=== PATIENT | female | born 1965 | race African-American/Black ===

== ENCOUNTER 2018-02-28 11:26 | Emergency (ER) | payer SELFPAY ==
[2018-02-28] MEDS ORDERED: Metoprolol Succinate XL TAB* 50 MG PO ONE (11:54)
--- OUTSIDE RECORDS SUMMARY | 2018-02-28 12:09 | XMS REPORT ---
:1965 External Reference #:[id number] Author Organization [facility] Address [address] [place] [address] [place] [address] Phone [phone] Care Team Providers Name Role Phone Ancelmo Arvizu MD Care Team Information Lifeguard Unavailable Ancelmo Arvizu MD Primary Care Physician Unavailable Payers Type Date Identification Numbers Payment Provider Subscriber Commercial Policy Number: [id number] [employer] Jose Osman PayID: [id number] [address] [address] [place] [address] Problems Date Description Provider Status Onset: 12/23/2007 Obstructive sleep apnea Judy Gunderson DNP, RN, Active syndrome CAN DRAGGER-BC Onset: 09/25/2016 Hypersomnia Judy Gunderson DNP, RN, Active CAN DRAGGER-BC Onset: 09/25/2016 Morbid obesity Judy Gunderson DNP, RN, Active CAN DRAGGER-BC Family History Date Family Member(s) Problem(s) Comments General Breast Cancer Aunts Father due to Pancreatic Cancer () Mother Congestive Heart Failure (CHF) Mother Coronary Artery Disease (CAD) Social History Type Date Description Comments Occupation Currently Working Cigarette Use Former Cigarette Smoker Smoking Patient is a former smoker Smoking Electronic cigarettes With nicotine, 2x per week Daily Caffeine Consumes on average 2 cups of regular coffee per day Allergies, Adverse Reactions, Alerts Date Description Reaction Status Severity Comments 06/05/2016 Keflex active Medications Medication Date Status Form Strength Qnty SIG Indications Ordering Provider Bupropion HCL ER (XL) Active Tablets 150mg 1 by Unknown /0000 ER 24HR mouth every day Lamotrigine Active Tablets 200mg take one Unknown /0000 tablet by mouth a day Saphris Active Tablets 10mg daily Unknown /0000 Sub Gabapentin Active Capsules 300mg 1 by Unknown /0000 mouth daily Losartan Potassium Active Tablets 100mg 1 by Unknown /0000 mouth every day Metformin HCL ER Active Tablets 500mg 1 by Unknown /0000 ER 24HR mouth every day Hydrochlorothiazide Active Tablets 25mg 1 by Unknown /0000 mouth every day Albuterol Active Powder inhaler Unknown /0000 every 4-6 hours as needed Vital Signs Date Vital Result Comment 02/28/2018 Height 63.5 inches 5'3.50" Weight 331.25 lb Heart Rate 88 /min BP Systolic Sitting 156 mmHg Rue large cuff BP Diastolic Sitting 92 mmHg Rue large cuff Respiratory Rate 26 /min O2 % BldC Oximetry 96 % On Ra BMI (Body Mass Index) 57.8 kg/m2 09/25/2016 Height 63.5 inches 5'3.50" Weight 336.00 lb Heart Rate 90 /min BP Systolic 154 mmHg BP Diastolic 88 mmHg Respiratory Rate 14 /min O2 % BldC Oximetry 97 % BMI (Body Mass Index) 58.6 kg/m2 06/27/2016 Height 63.5 inches 5'3.50" Weight 336.00 lb Heart Rate 84 /min BP Systolic 144 mmHg BP Diastolic 90 mmHg Respiratory Rate 18 /min Body Temperature 97.2 F BMI (Body Mass Index) 58.6 kg/m2 06/06/2016 Height 63.5 inches 5'3.50" Weight 333.00 lb Heart Rate 72 /min BP Systolic 130 mmHg BP Diastolic 80 mmHg Respiratory Rate 16 /min Body Temperature 98.1 F BMI (Body Mass Index) 58.1 kg/m2 Results Description No Information Procedures Description No Information Encounters Type Date Location Provider CPT E/M Dx Office Visit 09/25/2016 [facility] Gunderson, [address] G47.33 [facility] RN, ROBERT-BC F31.9 E66.01 Z68.43 Office Visit 06/27/2016 4:15p [facility] [place], [address] E66.01 [facility] Office Visit 06/06/2016 2:45p [facility] [place], [address] E66.01 [facility] Plan of Care Future Appointment(s):03/02/2019 11:15 am - Judy Gunderson DNP, RN, CAN DRAGGER-BC at [facility]02/28/2018 - Judy Gunderson DNP, RN, CAN DRAGGER- BCG47.33 Obstructive sleep apnea (adult) (pediatric)Comments:Sleep Apnea - AHI 76/hour, maria g oxygen 87%, weight 332, replacement CPAP in 2012On CPAP AHI 1.1/hourFollow up:1 yearRecommendations:Continue PAP device, Benefitting and compliant with treatment. Cleaning Wipe off mask daily (baby wipe-no scent , or warm water) Clean mask, tubing, filter, and water chamber weekly in mild no scent dish soap and water. Hang to dry. So-Clean is an option (not covered by insurance) If you have any sleepiness while driving you MUST avoid operating a vehicle or machinery. If you have difficulty with your equipment, or need to replace your mask or hoses, please contact your homecare agency. A weight change of 20 pounds or more may have an effect on your equipment; if you are experiencing problems please call for an appointment. If you have any further questions, please call the [facility] at [phone].[phone] Unspecified abnormalities of heart beatRecommendations:Irregular heart beat: please consult with primary care or emergency room Your primary care would like you to go to the Emergency Room for evaluation of the irregular heart beat. Report given to Armaan at the emergency department. BP 156/92, pulse 88, irregular with murmur 2/6Z68.43 Body mass index (BMI) 50-59.9 , adultRecommendations:Continue with weight loss efforts.
--- OUTSIDE RECORDS SUMMARY | 2018-02-28 12:10 | XMS REPORT ---
:1965 External Reference #:[id number] Author Organization [facility] Address [address] [place] [address] [place] [address] Phone [phone] Care Team Providers Name Role Phone Ancelmo Arvizu MD Care Team Information Hair Sample Matcher Unavailable Ancelom Arvizu MD Primary Care Physician Unavailable Payers Type Date Identification Numbers Payment Provider Subscriber Commercial Policy Number: [id number] [employer] Jose Osman PayID: [id number] [address] [address] [place] [address] Problems Date Description Provider Status Onset: 12/23/2007 Obstructive sleep apnea Judy Gunderson DNP, RN, Active syndrome INSURANCE SALES REPRESENTATIVE-BC Onset: 09/25/2016 Hypersomnia Judy Gunderson DNP, RN, Active INSURANCE SALES REPRESENTATIVE-BC Onset: 09/25/2016 Morbid obesity Judy Gunderson DNP, RN, Active INSURANCE SALES REPRESENTATIVE-BC Family History Date Family Member(s) Problem(s) Comments [...] Visit 09/25/2016 [facility] Judy Gunderson, [address] G47.33 2[facility] RN, ROBERT-BC F31.9 E66.01 Z68.43 Office Visit 06/27/2016 4:15p [facility] [place], [address] E66.01 [facility] Office Visit 06/06/2016 2:45p [facility] [place], [address] E66.01 [facility] Plan of Care Future Appointment(s):03/02/2019 11:15 am - Judy Gunderson DNP, RN, INSURANCE SALES REPRESENTATIVE-BC at [facility]/28/2018 - Judy Gunderson DNP, RN, INSURANCE SALES REPRESENTATIVE- BCG47.33 Obstructive sleep apnea (adult) (pediatric)Comments:Sleep Apnea [...] please call the [facility] at [phone].r00.9 Unspecified abnormalities of heart beatRecommendations:Irregular heart beat: [...]
--- NOTE | 2018-02-28 12:12 | ED ---
HPI Cardiac - HPI Summary HPI Summary: This patient is a 52 year old F presenting to [facility] with a chief complaint of irregular and fast heartbeat since a half hour ago. Pt was seeing a Portia Gunderson for sleep apnea when Dr. Gunderson discovered her irregular heartbeat and sent her to [facility]. Patient reports fast heartbeat. Patient denies CP, trouble breathing, pain or edema in legs, belly pain. PMHX high BP, HDL, sleep apnea, diabetes. SHX of e-cigarettes occasionally. Pt reports her BP was 198/100 three weeks ago, 196/92 earlier today. Pt just started a new medication for her BP and for diabetes. She is taking Cozaar, HCTZ, Diltiazem ER 240 mg, and metformin. Pt did not have any caffeine this morning but had some orange juice. Pt does not regularly check her blood sugar. - History of Current Complaint Chief Complaint: EDDysrhythmPalp Stated Complaint: IRREGULAR HEATBEAT Time Seen by Provider: 02/28/18 11:39 Hx Obtained From: Patient Onset/Duration: Started Minutes Ago - 1/2 hour Timing: Constant Initial Severity: Mild Current Severity: Mild Pain Intensity: 0 Pain Scale Used: 0-10 Numeric - Allergy/Home Medications Allergies/Adverse Reactions: Allergies Allergy/AdvReac Type Severity Reaction Status Date / Time cephalexin [From Keflex] Allergy Anaphylatic Verified 02/28/18 11:33 Shock PMH/Surg Hx/FS Hx/Imm Hx Endocrine/Hematology History: Reports: Hx Diabetes - Metformin Cardiovascular History: Reports: Hx Hypertension Respiratory History: Reports: Hx Seasonal Allergies, Hx Sleep Apnea - current CPAP user Musculoskeletal History: Reports: Hx Arthritis, Other Musculoskeletal History - morbid obesity Sensory History: Reports: Hx Contacts or Glasses Opthamlomology History: Reports: Hx Contacts or Glasses Psychiatric History: Reports: Hx Anxiety, Hx Depression - Surgical History Surgery Procedure, Year, and Place: Partial Hysterectomy; Breast Reduction Infectious Disease History: No Infectious Disease History: Denies: Traveled Outside the [place] in Last 30 Days - Family History Known Family History: Positive: Hypertension, Diabetes - Social History Alcohol Use: Weekly Alcohol Amount: 4 Substance Use Type: Reports: None Smoking Status (MU): Current Some Day Smoker Type: eCigarettes Have You Smoked in the Last Year: No Review of Systems Positive: Other - fast heart rate. Negative: Chest Pain Negative: Shortness Of Breath Negative: Abdominal Pain Negative: Myalgia, Edema All Other Systems Reviewed And Are Negative: Yes Physical Exam - Summary Physical Exam Summary: Appearance: Well appearing, no pain distress, obese Skin: warm, dry, reflects adequate perfusion Head/face: normal Eyes: EOMI, TIMOTEO ENT: normal Neck: supple, non-tender Respiratory: CTA, breath sounds present Cardiovascular: Occasionally irregular heartbeat with ectopic beats. HR 100 bpm , 178/86 Abdomen: non-tender, soft Bowel Sounds: present Musculoskeletal: normal, strength/ROM intact Neuro: normal, sensory motor intact, A&Ox3 Triage Information Reviewed: Yes Vital Signs On Initial Exam: Initial Vitals Temp Pulse Resp BP Pulse Ox 97.8 F 97 16 174/90 96 02/28/18 11:30 02/28/18 11:30 02/28/18 11:30 02/28/18 11:30 02/28/18 11:30 Vital Signs Reviewed: Yes Diagnostics - Vital Signs Vital Signs Temp Pulse Resp BP Pulse Ox 02/28/18 11:53 178/76 02/28/18 11:38 97.9 F 99 25 186/87 97 02/28/18 11:30 97.8 F 97 16 174/90 96 - Laboratory Lab Statement: Any lab studies that have been ordered have been reviewed, and results considered in the medical decision making process. - EKG 11:44 Cardiac Rate: NL - 99 bpm EKG Rhythm: Sinus Rhythm ST Segment: Non-Specific Ectopy: PACs EKG Interpretation: nml axis, nml int Disposition - Course Course Of Treatment: Patient with a history of uncontrolled hypertension was sent over by the sleep clinic for irregular heartbeat. Her EKG here shows PACs. On monitoring she shows frequent PACs without runs. She has no real symptoms at present but does run a heart rate of 90-105 with an average of about 95. Dose of Toprol-XL 50 mg is given here. I spoke with her family doctor's office and we will increase her diltiazem ER to 360 mg a day. - Diagnoses Provider Diagnoses: PAC (premature atrial contraction), Chronic hypertension - Physician Notifications Discussed Care Of Patient With: Ancelmo Arvizu Time Discussed With Above Provider: 11:56 - Pt takes Cozaar, HCTZ, Diltizem Er 240mg. Dr. Arvizu suggested increasing Diltiazem to 320 mg. Discharge - Sign-Out/Discharge Documenting (check all that apply): Patient Departure - Discharge - Discharge Plan Condition: Good Disposition: HOME Prescriptions: dilTIAZem HCl [Diltiazem 24Hr ER] 360 mg PO DAILY #30 cap.er.24h Patient Education Materials: Chronic Hypertension (ED), Premature Atrial Contractions (ED) Referrals: Ancelmo Arvizu MD [Primary Care Provider] - Additional Instructions: Call today to follow up with her family doctor. Return with chest pain, palpitations, weakness/lightheadedness, worse or other concerns. Have her doctor check your blood pressure on the week. - Billing Disposition and Condition Condition: GOOD Disposition: Home
[2018-02-28 12:24] VITALS: BP 183/84
== END 2018-02-28 12:22 | disposition home or self-care (01) ==
LOC: ED 11:26
DX: I49.1 Atrial premature depolarization (principal); I10 Essential (primary) hypertension; E78.5 Hyperlipidemia, unspecified; E11.9 Type 2 diabetes mellitus without complications; G47.30 Sleep apnea, unspecified; F17.290 Nicotine dependence, other tobacco product, uncomplicated; Z79.899 Other long term (current) drug therapy; Z88.3 Allergy status to other anti-infective agents
CPT/HCPCS: 93005; 99282; A9270-GY